=== PATIENT | male | born 1975 | race Caucasian/White ===

== ENCOUNTER 2022-01-21 07:29 | Inpatient (IN) | payer OTHER ==
[~2022-01-21] VITALS: Ht 175.3 cm; Wt 133.8 kg
[~2022-01-21 07:29] MED LIST: ASPI-1822 PO; CARV12.5 PO; FURO-570 PO; LOSA100T1 PO; POTA8TAB19 PO
[2022-01-21 07:58] VITALS: BP 206/114
[2022-01-21] MEDS ORDERED: FUROSEMIDE 40 MG/4 ML VIAL IVP SCH ×2 (08:25→17:00)
[2022-01-21] MEDS ORDERED: LORazepam 2 MG/ML VIAL IVP ONE (08:25)
[2022-01-21] MEDS ORDERED: LOSARTAN 50 MG TAB PO STA (08:43)
[2022-01-21] MEDS ORDERED: carvediloL 6.25 MG TAB PO ONE (08:45)
--- NOTE | 2022-01-21 09:00 | NUR ---
pt c/o sob s/p meth use this am. noted with constant dry cough. stach on monitor. saturation 91% ra. iv inserted to left ac #[id number].
--- NOTE | 2022-01-21 09:55 | NUR ---
pt desaturates to 87% on ra, dr day made aware. pending admission
--- NOTE | 2022-01-21 10:01 | NUR ---
rt at bedside for bipap
[2022-01-21 10:29] LABS: BASOPHILS % (AUTO) 0.3 % (0.0-2.0); EOSINOPHILS % (AUTO) 0.5 % (0.0-4.0); HEMATOCRIT 43.9 % (36-52); LYMPHOCYTES # (AUTO) 0.5 K/uL (2.0-11.5); LYMPHOCYTES % (AUTO) 5.3 % (20.5-51.1); MEAN CORPUSCULAR HEMOGLOBIN 27 pg (27-31); MEAN CORPUSCULAR HGB CONC 32 g/dL (33-37); MEAN CORPUSCULAR VOLUME 83.3 fL (80-94); MONOCYTES # (AUTO) 0.5 K/uL (0.8-1.0); MONOCYTES % (AUTO) 5.9 % (1.7-9.3); NEUTROPHILS # (AUTO) 7.8 K/uL (1.8-7.7); PLATELET COUNT (AUTO) 209 K/uL (140-450); RED BLOOD CELL COUNT(AUTO) 5.27 MIL/uL (4.20-6.10); RED CELL DISTRIBUTION WIDTH 18.7 % (11.6-13.7); WHITE BLOOD COUNT (AUTO) 8.9 K/uL (4.8-10.8)
[2022-01-21] MEDS ORDERED: LORazepam 2 MG/ML VIAL IVP PRN (10:40)
[2022-01-21] MEDS ORDERED: ACETAMINOPHEN 325 MG TAB PO PRN (10:40)
[2022-01-21] MEDS ORDERED: ONDANSETRON 4 MG/2 ML VIAL IVP PRN (10:40)
[2022-01-21] MEDS ORDERED: HYDROcodone/APAP 5/325 MG 1 TAB TAB PO PRN (10:40)
[2022-01-21] MEDS ORDERED: ALBUTEROL 0.083% 2.5 MG/3 ML NEBU INH PRN (10:40)
[2022-01-21 10:48] LABS: ALBUMIN 3.5 g/dL (3.4-5.0); ANION GAP 13.5 (8-16); CARBON DIOXIDE 25.3 mmol/L (21-32); CREATININE 1.2 mg/dL (0.6-1.3); POTASSIUM 3.8 mmol/L (3.5-5.1); TOTAL BILIRUBIN 1.9 mg/dL (0.0-1.0)
--- NOTE | 2022-01-21 10:54 | NUR ---
RECEIVED CRITICAL LAB VALUE OF TROPONIN 1511. PAGED AND SPOKE WITH DR MEJIA. ALSO NOTIFIED HIM OF ELEVATED BP. STATED HE WILL PUT IN ORDERS NOW.
[2022-01-21 11:15] VITALS: BP 149/87
[2022-01-21 11:39] LABS: CREATINE KINASE MB 4.4 ng/mL (0-3.6)
[2022-01-21] MEDS: PIPERACILLIN/TAZOBACTAM 3.375 GM in DEXTROSE 5% 50 ML IV SCH ×2 (14:23→21:43)
[2022-01-21 16:00] VITALS: BP 159/43
[2022-01-21] MEDS: FUROSEMIDE 40 MG/4 ML VIAL IVP SCH (17:00)
--- NOTE | 2022-01-21 19:25 | NUR ---
PT ENDORSED TO GARDENER FOR CONTINUITY OF CARE. POC DISCUSSED.
--- NOTE | 2022-01-21 19:27 | NUR ---
PATIENTS SATS ON ROOM AIR IS 95%. PATIENT IS EATING. PATIENT SAID HE WOULD WEAR BIPAP TONIGHT.NO SOB NOTED. NO HHNTX GIVEN AT THIS TIME
--- NOTE | 2022-01-21 19:30 | NUR ---
RECEIVED PT FROM AM NURSE FOR CONTINUITY OF CARE. PT IS STABLE
[2022-01-21 20:00] VITALS: BP 149/83
--- NOTE | 2022-01-21 20:31 | NUR ---
PATIENT REFUSES TO WEAR BIPAP AT THIS TIME. PATIENT IS ON 2LNC. SATS 99%. WILL MONITOR PATIENT
[2022-01-21] MEDS: carvediloL 3.125 MG TAB PO SCH (21:17)
--- NOTE | 2022-01-21 21:30 | NUR ---
ALL MEDS GIVEN , NO ADVERSE REACTIONS NOTED. NO SOB,NO DISTRESS NOTED
[2022-01-22] VITALS: BP 145/85
--- NOTE | 2022-01-22 01:00 | NUR ---
PT REFUSING 2L NC.EXPLAINE THE IMPORTANCE BUT HE SAID HE IS OK. O2 SAT AT 975% Addendum: 01/22/22 at 0124 by Jony Irby RN 97%
--- NOTE | 2022-01-22 03:00 | NUR ---
PATIENT ASLEEP, NO SOB NOTED,REFUSED BIPAP MACHINE,NO DISTRESS NOTED.
[2022-01-22 04:00] VITALS: BP 148/90
[2022-01-22] MEDS: PIPERACILLIN/TAZOBACTAM 3.375 GM in DEXTROSE 5% 50 ML IV SCH ×3 (05:05→20:54)
[2022-01-22 05:36] LABS: BASOPHILS % (AUTO) 0.9 % (0.0-2.0); EOSINOPHILS # (AUTO) 0.1 K/uL (0-0.4); EOSINOPHILS % (AUTO) 1.8 % (0.0-4.0); HEMATOCRIT 39.4 % (36-52); HEMOGLOBIN 12.6 g/dL (12.0-18.0); LYMPHOCYTES # (AUTO) 0.8 K/uL (2.0-11.5); LYMPHOCYTES % (AUTO) 18.6 % (20.5-51.1); MEAN CORPUSCULAR HEMOGLOBIN 26 pg (27-31); MEAN CORPUSCULAR HGB CONC 32 g/dL (33-37); MEAN CORPUSCULAR VOLUME 82.6 fL (80-94); MONOCYTES # (AUTO) 0.4 K/uL (0.8-1.0); NEUTROPHILS % (AUTO) 68.7 % (42.2-75.2); PLATELET COUNT (AUTO) 180 K/uL (140-450); RED BLOOD CELL COUNT(AUTO) 4.77 MIL/uL (4.20-6.10); RED CELL DISTRIBUTION WIDTH 18.7 % (11.6-13.7); WHITE BLOOD COUNT (AUTO) 4.4 K/uL (4.8-10.8)
--- NOTE | 2022-01-22 06:00 | NUR ---
PATIENT ASLEEP ,RESPIRATIONS EVEN AND UNLABORED,NO SOB NOTED
[2022-01-22 06:28] LABS: ANION GAP 12.9 (8-16); CARBON DIOXIDE 25.6 mmol/L (21-32); POTASSIUM 3.5 mmol/L (3.5-5.1)
--- NOTE | 2022-01-22 07:15 | NUR ---
RECEIVED BEDSIDE REPORT FROM WEIGHT CALLER NURSE FOR CONTINUITY OF CARE. PT AOX4. PT IS ON NC 2L BUT KEEPS TAKING IT OFF SATING AROUND 95% ON RA. IV ON L AC 18G, PATENT AND INTACT. PT BREATHING IS EVEN AND UNLABORED. NO SIGNS OF DISTRESS NOTED. ON TELE. ALL PRECAUTIONS IN PLACE. CALL LIGHT WITHIN REACH. PT IS STABLE.
[2022-01-22 08:00] VITALS: BP 160/81
--- NOTE | 2022-01-22 09:01 | NUR ---
PATIENT HAS BEEN SCREENED AND CATEGORIZED MODERATE NUTRITION RISK. PATIENT WILL BE SEEN WITHIN 3-[address]. [address]
[2022-01-22] MEDS: POTASSIUM CHLORIDE 10 MEQ TABER PO SCH (09:24)
[2022-01-22] MEDS: carvediloL 3.125 MG TAB PO SCH ×2 (09:25→20:53)
[2022-01-22] MEDS: FUROSEMIDE 40 MG/4 ML VIAL IVP SCH ×2 (09:26→17:14)
[2022-01-22] MEDS: ASPIRIN 81 MG TAB.CHEW PO SCH (09:26)
[2022-01-22] MEDS: LOSARTAN 50 MG TAB PO SCH (09:26)
[2022-01-22] MEDS: ENOXAPARIN 40 MG/0.4 ML SYR SUBQ SCH (09:28)
[2022-01-22] MEDS ORDERED: POTASSIUM CHLORIDE 10 MEQ TABER PO SCH (11:00)
[2022-01-22 11:23] LABS: CREATINE KINASE MB 2.7 ng/mL (0-3.6)
--- NOTE | 2022-01-22 11:56 | NUR ---
PT IS SLEEPING. PT AOX4. PT IS ON NC 2L. IV ON L AC 18G, PATENT AND INTACT. PT BREATHING IS EVEN AND UNLABORED. NO SIGNS OF DISTRESS NOTED. ON TELE. ALL PRECAUTIONS IN PLACE. CALL LIGHT WITHIN REACH. PT IS STABLE.
[2022-01-22 12:00] VITALS: BP 131/93
--- NOTE | 2022-01-22 14:30 | NUR ---
ASSISTED PT TO TAKE A SHOWER. PT FEELS MUCH BETTER. PT AOX4. PT IS ON NC 2L. IV ON L AC 18G, PATENT AND INTACT. PT BREATHING IS EVEN AND UNLABORED. NO SIGNS OF DISTRESS NOTED. ON TELE. ALL PRECAUTIONS IN PLACE. CALL LIGHT WITHIN REACH. PT IS STABLE.
[2022-01-22 16:00] VITALS: BP 126/96
--- NOTE | 2022-01-22 18:26 | NUR ---
PT IS RESTING. PT AOX4. PT IS ON NC 2L. IV ON L AC 18G, PATENT AND INTACT. PT BREATHING IS EVEN AND UNLABORED. NO SIGNS OF DISTRESS NOTED. ON TELE. ALL PRECAUTIONS IN PLACE. CALL LIGHT WITHIN REACH. PT IS STABLE.
--- NOTE | 2022-01-22 19:40 | NUR ---
PT ENDORSED TO KNITTING MACHINE MECHANIC FOR CONTINUITY OF CARE. POC DISCUSSED.
[2022-01-22 20:00] VITALS: BP 137/93
--- NOTE | 2022-01-22 20:31 | NUR ---
PT SITTING UP IN BED AWAKE AND ALERT, ANTERIOR AUSCULTATIONS REVEALED BS CLEAR THROUGHOUT ALL LUNG WALTER, NO SIGNS OF RESPIRATORY DISTRESS NOTED AT THIS TIME. PT IS CURRENTLY SATING 95% ON RA. DISCUSSED THE BENEFITS OF WEARING BIPAP AT NIGHT WITH PT. WILL ATTEMPT TO PLACE HIM ON BIPAP @ 2300. WILL CONTINUE TO MONITOR.
--- NOTE | 2022-01-22 22:45 | NUR ---
PATIENT IN BED. NO ACUTE DISTRESS NOTED. NO COMPLAINT OF PAIN OR DISCOMFORT. WILL CONTINUE TO MONITOR.
[2022-01-23] VITALS (7 sets, daily range): BP systolic 140–165; BP diastolic 71–107
[2022-01-23] MEDS: PIPERACILLIN/TAZOBACTAM 3.375 GM in DEXTROSE 5% 50 ML IV SCH (05:00)
--- NOTE | 2022-01-23 07:20 | NUR ---
Endorsed to a.m. nurse about patient's heart rhythm, 2nd and 3rd degree heart block.
--- NOTE | 2022-01-23 08:00 | NUR ---
RECEIVE PATIENT IN STABLE CONDITION FROM PM SHIFT NURSE. WILL CONTINUE TO MONITOR
--- NOTE | 2022-01-23 08:00 | NUR ---
REMOVED BIPAP @ 0800(AVAPS) +6, RR19, I-TIME 0.9, RISE 3, FIO2 36%, CURRENTLY ON STAND BY. PT IS CLEAR THROUGHOUT, NO RESPIRATORY DISTRESS NOTED. RESTING COMFORTABLY. SATURATION @ 96 ON RA. LET HIM KNOW THAT IF HE NAPS AND WANTS BIPAP ON TO CALL ME AND I WILL PIT IT BACK ON.
--- NOTE | 2022-01-23 08:46 | NUR ---
DC PLANNING: THE PATIENT PRESENTED TO ER WITH C/O SOB, H/O OF CHF AND HTN, STATES HE WAS EXPOSED TO PEOPLE WITH FLU LIKE SYMPTOMS. CXR SHOWS CARDIOMEGALY WITH EDEMA AND VASCULAR CONGESTION, B/P 204/114. EKG SHOWS LEFT BBB, LVH OF 128, NO STEMI. BNP ELEVATED AT 507, PATIENT GIVEN LASIX IV, COREG, COZAAR, ZOFRAN AND ATIVAN, ALSO DUONEBS FOR WHEEZING. WHIT SPOKE WITH THE PATIENT AT BEDSIDE, HE STATES THAT HE HAS BEEN LIVING IN HIS CAR FOR MONTHS AND DOESN'T HAVE A FIXED SPOT THAT HE MEADE IT IN. STATES HE IS INDEPENDENT IN ALL ACTIVITIES AND WORKS SPORADICALLY IN CONSTRUCTION. STATES THIS IS HIS ONLY INCOME SOURCE ASIDE FROM FOOD STAMPS. STATES HE LAST WORKED 2 WEEKS AGO, AND WILL RETURN TO LIVING IN HIS CAR. WHIT ENDORSED THAT THE SW WILL GIVE HIM RESOURCES FOR SHELTERS, HE STATES THAT HE WANTS RESOURCES FOR DRUG REHAB, SW TO ALSO PROVIDE THIS. THE PATIENT DOES NOT HAVE A PCP THAT HE SEES REGULARLY. WHIT WILL FOLLOW. Addendum: 01/23/22 at 0853 by Pati Zapata CM Amended: Links added.
[2022-01-23] MEDS: FUROSEMIDE 40 MG/4 ML VIAL IVP SCH (09:00)
[2022-01-23] MEDS: ENOXAPARIN 40 MG/0.4 ML SYR SUBQ SCH (09:00)
[2022-01-23] MEDS: LOSARTAN 50 MG TAB PO SCH (09:00)
[2022-01-23] MEDS: POTASSIUM CHLORIDE 10 MEQ TABER PO SCH (09:00)
[2022-01-23] MEDS: carvediloL 3.125 MG TAB PO SCH (09:00)
[2022-01-23] MEDS: ASPIRIN 81 MG TAB.CHEW PO SCH (09:00)
[2022-01-23] MEDS ORDERED: AMOX-1230 PO (10:24)
[2022-01-23] MEDS ORDERED: POTASSIUM CHLORIDE 10 MEQ TABER PO SCH (12:52)
--- NOTE | 2022-01-23 13:05 | NUR ---
RECEIVE PCP ORDER TO D/C PATIENT HOME. TEL. MONITOR & IV ACCESS REMOVED. PATIENT STABLE W/ NO ACUTE DISTRESS NOTED
--- NOTE | 2022-01-23 14:31 | NUR ---
DC PLANNING PATIENT ARRIVED AT [facility]/ED ON 01/21/22 FOR COMPLAINTS OF SHORTNESS OF BREATH, SICK CONTACTS OF FLU LIKE SX'S, VOMITING AND DIARRHEA. PATIENT HAS HX OF CHF AND HYPERTENSION SW MET WITH PATIENT AT BEDSIDE FOR THE PURPOSE OF DISCUSSING AND GATHERING COLLATERAL INFORMATION. PATIENT REPORTS CHRONIC HOMELESSNESS AND REPORTS LIVING IN HIS CAR. PATIENT PROVIDED ADDRESS ON FILE [address], WHERE HE RECEIVES ALL HIS MAIL. PATIENT REPORTS EMERGENCY CONTACT AND MEDICAL DECISION MAKER DARRYL SUAREZ (DAUGHTER) [phone]. SW INQUIRED ON A.D; PATIENT DENIED CURRENTLY HAVING ONE IN PLACE. SW PROVIDED PATIENT WITH EDUCATION AND INFORMATION. PATIENT WAS RECEPTIVE AND ACCEPTED A.D PACKET PROVIDED BY CARLI. PATIENT REPORTS BEING AMBULATORY/INDEPENDENT. PATIENT SELF REPORTED THAT HE IS ATTEMPTING TO TURN HIS LIFE AROUND. SW PROVIDED PATIENT WITH HOMELESS RESOURCES, EMERGENCY RESOURCES, AND ALCOHOL AND SUBSTANCE USE RESOURCES. PATIENT WAS RECEPTIVE AND REPORTED THAT HE WOULD BE CONTACTING [facility] ONCE CLEARED FOR DISCHARGED. SW PROVIDED PATIENT WITH PSYCHOEDUCATION ON REHABILITATION SERVICES AIDE SUBSTANCE USE. PATIENT REPORTS BEING INCONSISTENT WITH MEETING WITH PCP AND REPORTED NOT KNOWING HIS PCP PROVIDER. PATIENT PROVIDED SW WITH PERMISSION TO IDENTIFY PCP AND MAKE FOLLOW UP APPOINTMENT ONCE CLEARED FOR DISCHARGE. PATIENT REPORTS BEING NONCOMPLIANT WITH MEDICATION. PATIENT REPORTS DISCHARGE PLAN IS TO SEEK REHAB ASSISTANCE. ADVANCED SOLUTIONS ARCHITECT WILL FOLLOW UP. Addendum: 01/23/22 at 1440 by Bandar Gonsales CARLI CALLED [employer] TO IDENTIFY PATIENTS PCP. CALL REP IDENTIFIED DR RUTLEDGE AT [phone] PCP. CARLI OUTREACHED TO DR. RUTLEDGE OFFICE TO SCHEDULE FOLLOW APPT. APPT WAS MADE WITH CLOTH FINISHING RANGE OPERATOR CHIEF KALPANA FOR 01/28/22 AT 11:30AM [place] [address] [address] [facility] [place] [address] AT [phone] CARLI PROVIDED PATIENT WITH APPT INFORMATION THAT INCLUDED TIME, DATE, ADDRESS AND PHONE NUMBER FOR PCP. PATIENT WAS GRATEFUL AND REPORTED THAT HE WOULD FOLLOW UP.
[2022-01-23] MEDS ORDERED: FUROSEMIDE 40 MG TAB PO SCH (17:00)
== END 2022-01-23 13:30 | disposition home or self-care (01) | DRG 133 ==
LOC: MED 07:29 → MTU 10:43
PROVIDERS: ADMIT Hospitalist; ATTEND Hospitalist
PROC: 5A09357 Assistance with Respiratory Ventilation, Less than 24 Consecutive Hours, Continuous Positive Airway Pressure (ICD-10-PCS; principal; 2022-01-21)
DX: J96.01 Acute respiratory failure with hypoxia (principal); R65.11 Systemic inflammatory response syndrome (SIRS) of non-infectious origin with acute organ dysfunction; I21.A1 Myocardial infarction type 2; I50.23 Acute on chronic systolic (congestive) heart failure; I42.0 Dilated cardiomyopathy; I11.0 Hypertensive heart disease with heart failure; Z20.822 Contact with and (suspected) exposure to COVID-19; J45.909 Unspecified asthma, uncomplicated; E66.01 Morbid (severe) obesity due to excess calories; F15.10 Other stimulant abuse, uncomplicated; I44.7 Left bundle-branch block, unspecified; Z91.14 Patient's other noncompliance with medication regimen; Z68.41 Body mass index [BMI] 40.0-44.9, adult; Z87.891 Personal history of nicotine dependence; Z79.82 Long term (current) use of aspirin; Z79.899 Other long term (current) drug therapy
CPT/HCPCS: 36415; 71045; 80048; 80053; 82550; 82553; 83735; 83880; 84484; 85025; 87081; 93005; 94660; 96374; 96375; 99291; J1650; J1940; J2060; J2543; J7060

== ENCOUNTER 2022-02-08 23:50 | Emergency (ER) | payer OTHER ==
[~2022-02-08] VITALS: Ht 175.3 cm; Wt 126.3 kg
[~2022-02-08 23:50] MED LIST changes: +AMOX-1230 PO
[2022-02-09 00:18] VITALS: BP 152/105
--- NOTE | 2022-02-09 00:27 | NUR ---
PT TAKEN TO BED 11.
[2022-02-09] MEDS ORDERED: FURO-570 PO (01:10)
[2022-02-09] MEDS ORDERED: POTA10TA70 PO (01:10)
--- NOTE | 2022-02-09 01:11 | NUR ---
WRAPPED PATIENT'S RIGHT FOOT WITH NONADHERENT GAUZE AND LEXY WRAP PER ERMD SIN ORDERS. PATIENT +ROM, AND +SENSATION BILATERALLY S/P WRAPPED RIGHT FOOT.
--- NOTE | 2022-02-09 01:12 | NUR ---
ERMD SIN COMFORTABLE SENDING PATIENT HOME WITH INCREASED HR AND HIGH BLOOD PRESSURE. ERMD AWARE STATUS OF VITAL SIGNS.
--- NOTE | 2022-02-09 01:17 | NUR ---
Patient discharged. Written and verbal after care instructions given and explained. Patient alert, oriented and verbalized understanding of instructions. Ambulatory with steady gait. All questions addressed prior to discharge. ID band removed. Patient advised to follow up with PMD. Rx of Lasix and K-DUR given. Patient educated on indication of medication including possible reaction and side effects. Opportunity to ask questions provided and answered.
[2022-02-09 01:19] VITALS: BP 155/115
== END 2022-02-09 01:17 | disposition home or self-care (01) ==
LOC: MED 23:50
DX: I83.891 Varicose veins of right lower extremity with other complications (principal); J45.909 Unspecified asthma, uncomplicated; I11.0 Hypertensive heart disease with heart failure; I50.9 Heart failure, unspecified; F12.90 Cannabis use, unspecified, uncomplicated; Z79.899 Other long term (current) drug therapy; Z79.82 Long term (current) use of aspirin; Z79.2 Long term (current) use of antibiotics
CPT/HCPCS: 99283

== ENCOUNTER 2022-04-07 19:28 | Emergency (ER) | payer OTHER ==
[~2022-04-07] VITALS: Ht 175.3 cm; Wt 127.0 kg
[~2022-04-07 19:28] MED LIST changes: -AMOX-1230 PO; -CARV12.5 PO; +CARV6.25 PO; -LOSA100T1 PO; +LOSA25TA32 PO; -POTA8TAB19 PO; +SPIR50TA PO
[2022-04-07 20:11] VITALS: BP 156/114
--- NOTE | 2022-04-07 20:20 | NUR ---
TO LOBBY FOLLOWING TRIAGE
[2022-04-07] MEDS ORDERED: FUROSEMIDE 40 MG TAB PO ONE (22:00)
[2022-04-07] MEDS ORDERED: LOSA100T1 PO (22:03)
[2022-04-07] MEDS ORDERED: CARV12.5 PO (22:03)
[2022-04-07] MEDS ORDERED: FURO-570 PO (22:03)
[2022-04-07] MEDS ORDERED: POTA8TAB19 PO (22:03)
[2022-04-07] MEDS ORDERED: FUROSEMIDE 40 MG TAB ONE (23:02)
--- NOTE | 2022-04-07 23:05 | NUR ---
Patient discharged with v/s stable. Written and verbal after care instructions given and explained. Patient alert, oriented and verbalized understanding of instructions. Ambulatory with steady gait. All questions addressed prior to discharge. ID band removed. Patient advised to follow up with PMD. Rx of LOSARTAN, POSTASSIUM, LASIX, COREG given. Patient educated on indication of medication including possible reaction and side effects. Opportunity to ask questions provided and answered.
[2022-04-11] MEDS ORDERED: SPIR25TA PO (13:01)
== END 2022-04-07 23:05 | disposition home or self-care (01) ==
LOC: MED 19:28
DX: I11.0 Hypertensive heart disease with heart failure (principal); I50.9 Heart failure, unspecified; R60.0 Localized edema; J45.909 Unspecified asthma, uncomplicated; Z79.899 Other long term (current) drug therapy; Z79.82 Long term (current) use of aspirin
CPT/HCPCS: 99283

== ENCOUNTER 2022-04-15 04:25 | Inpatient (IN) | payer OTHER ==
[~2022-04-15] VITALS: Ht 182.9 cm; Wt 128.8 kg
[~2022-04-15 04:25] MED LIST changes: -ASPI-1822 PO; +CARV12.5 PO; -CARV6.25 PO; +LOSA100T1 PO; -LOSA25TA32 PO; +POTA8TAB19 PO; +SPIR25TA PO; -SPIR50TA PO
[2022-04-15 05:00] VITALS: BP 176/109
--- NOTE | 2022-04-15 05:03 | NUR ---
TO LOBBY A/W BED AMBULATORY
--- NOTE | 2022-04-15 05:14 | NUR ---
Dr. Cummings examining patient.
--- NOTE | 2022-04-15 05:16 | NUR ---
PT TAKEN TO BED 9
[2022-04-15] MEDS ORDERED: MAG SULF 2000 MG/WATER PREMIX 50 ML IV ONE (05:20)
[2022-04-15] MEDS ORDERED: FUROSEMIDE 40 MG/4 ML VIAL IVP ONE (05:20)
[2022-04-15] MEDS ORDERED: ALBUTEROL SULFATE/IPRATROPIU 3 ML SOL IH ONE (05:20)
[2022-04-15] MEDS ORDERED: predniSONE 20 MG TAB PO ONE (05:20)
--- NOTE | 2022-04-15 05:29 | NUR ---
X-Ray at bedside.
--- NOTE | 2022-04-15 05:29 | NUR ---
CHAINSTITCH ELASTIC ATTACHER AT BEDSIDE
[2022-04-15] MEDS ORDERED: ALBUTEROL HFA MDI 90 MCG/ACTUATION 8 GM INH ONE (05:30)
[2022-04-15 05:34] LABS: BASOPHILS # (AUTO) 0.1 K/uL (0.00-0.22); EOSINOPHILS # (AUTO) 0.1 K/uL (0-0.4); EOSINOPHILS % (AUTO) 1.1 % (0.0-4.0); HEMOGLOBIN 13.2 g/dL (12.0-18.0); LYMPHOCYTES # (AUTO) 1.6 K/uL (2.0-11.5); LYMPHOCYTES % (AUTO) 18.1 % (20.5-51.1); MEAN CORPUSCULAR HEMOGLOBIN 27 pg (27-31); MEAN CORPUSCULAR HGB CONC 32 g/dL (33-37); MEAN CORPUSCULAR VOLUME 84.8 fL (80-94); MONOCYTES # (AUTO) 1.2 K/uL (0.8-1.0); MONOCYTES % (AUTO) 13.3 % (1.7-9.3); NEUTROPHILS # (AUTO) 5.9 K/uL (1.8-7.7); NEUTROPHILS % (AUTO) 66.5 % (42.2-75.2); PLATELET COUNT (AUTO) 193 K/uL (140-450); RED BLOOD CELL COUNT(AUTO) 4.84 MIL/uL (4.20-6.10); RED CELL DISTRIBUTION WIDTH 19.1 % (11.6-13.7); WHITE BLOOD COUNT (AUTO) 8.9 K/uL (4.8-10.8)
--- NOTE | 2022-04-15 05:36 | NUR ---
46 Y/O MALE BIBS FROM "CAR," C/O SOB X1 DAY. PT STATES HE CAME TO [facility] RECENTLY TO RECIEVE A BREATYHING TREATMENT. TODAY HE WAS HOPING ANOTHER BREATHING TREATMENT WOULD HELP HIM. PT IS SOB ADN NOT ABLE TO SPEAK IN FULL SENTENCES, TACHYPNIC, ACCESSORY MUSCLE USE. A/OX4, GCS-15; AMBULATORY. SKIN IS PINK, WARM, AND DRY, TACHYCARDIC. HX: CHF, COPD, HYN NKA
--- NOTE | 2022-04-15 05:42 | NUR ---
PT MOVED TO ER BED 1
--- NOTE | 2022-04-15 05:43 | NUR ---
RT AT BEDSIDE GIVING BREATHING TREATMENT
[2022-04-15 06:04] LABS: ALBUMIN 3.2 g/dL (3.4-5.0); ANION GAP 10.8 (8-16); CARBON DIOXIDE 25.9 mmol/L (21-32); CREATININE 1.1 mg/dL (0.6-1.3); POTASSIUM 3.7 mmol/L (3.5-5.1); TOTAL BILIRUBIN 0.9 mg/dL (0.0-1.0)
--- NOTE | 2022-04-15 07:15 | NUR ---
REPORT RECIEVED FROM FEBRUARY RN
--- NOTE | 2022-04-15 07:30 | NUR ---
COVID SWAB OBTAINED AND SENT TO LAB
--- NOTE | 2022-04-15 07:31 | NUR ---
46YR OLD MALE BIB SELF LAST NIGHT C/O SOB. PT HAS A HX OF CHF. WAS COVID POSITIVE TESTED HERE AT [facility] ON THE [facility]. PATIENT WILL BE ADMITTED. PENDING ADMISSION ORDERS. PT IS ON BEDSIDE MONITOR SP02 95% RA. NO DISTRESS NOTED. SPEAKING IN FULL SENTENCES. IS TACHYCARDIC HR 115. PT IS A&OX4. SKIN PINK WARM DRY. PT SITTING ON SIDE OF BED. STATES "ROOM IS TOO HOT" IS UNCOMFORTABLE. COMFORT MEASURES . SIDE RAILS UPX1. BED AT LOWEST POSITION. NKDA CHF HTN
--- NOTE | 2022-04-15 08:41 | NUR ---
20G IV CATH STARTED L FOREARM. 22G IV CATH REMOVED FROM L HAND
--- NOTE | 2022-04-15 08:57 | NUR ---
Patient discharged with v/s stable. Written and verbal after care instructions given and explained. Patient alert, oriented and verbalized understanding of instructions. Ambulatory with steady gait. All questions addressed prior to discharge. ID band removed. Patient advised to follow up with PMD. Rx of ATARAX ZOFRAN given. Patient educated on indication of medication including possible reaction and side effects. Opportunity to ask questions provided and answered.
--- NOTE | 2022-04-15 09:17 | NUR ---
PATIENT WALKED TO BATHROOM WITHOUT DIFFICULTY. DENIES SOB. SITTING IN CHAIR EATING BREAKFAST
--- NOTE | 2022-04-15 09:34 | NUR ---
PERSONAL BELONGINGS AND MED RECONCILE COMPLETED
[2022-04-15] MEDS ORDERED: MORPHINE SULFATE 4 MG/ML SYR IVP PRN (09:35)
[2022-04-15] MEDS ORDERED: ACETAMINOPHEN 325 MG TAB PO PRN (09:35)
[2022-04-15] MEDS ORDERED: ONDANSETRON 4 MG/2 ML VIAL IVP PRN (09:35)
[2022-04-15] MEDS ORDERED: POTASSIUM CHLORIDE 10 MEQ TABER PO PRN (09:35)
[2022-04-15] MEDS ORDERED: MAG SULF 2000 MG/WATER PREMIX 50 ML IV PRN (09:35)
[2022-04-15] MEDS ORDERED: KCL 20 MEQ/WATER INJ PREMIX 200 ML IV PRN (09:35)
[2022-04-15] MEDS ORDERED: MAGNESIUM OXIDE 400 MG TAB PO PRN (09:35)
[2022-04-15] MEDS ORDERED: HYDROcodone/APAP 5/325 MG 1 TAB TAB PO PRN (09:35)
--- NOTE | 2022-04-15 09:39 | NUR ---
PENDING ADMISSION ORDERS. PT DENIES SOB . TACHYCARDIC AT 170. SP02 98% RA. PT ON SITTING UP ON SIDE OF BED. PT ON BEDSIDE MONITOR. WILL CONTINUE TO MONITOR PT AND OFFER SUPPORT WHEN NEEDED
[2022-04-15] MEDS: NACL 0.9% 1,000 ML IV SCH ×2 (11:05→22:05)
--- NOTE | 2022-04-15 12:58 | NUR ---
FOOD PROVIDED TO PATIENT. SITTING UP RIGHT. SP02 97%RA. TACHYCARDIC 111. NO DISTRESS NOTED. PT ON MONITOR . PENDING AVIAL BED ASSIG.
--- NOTE | 2022-04-15 14:33 | NUR ---
Patient will be admitted to care of [facility]. Admited to TELE. Will go to room 118. Belongings list completed. Report to AUSTEN NICHOLAS.
--- NOTE | 2022-04-15 14:34 | NUR ---
Chart checked and completed. The patient's care was reviewed and supervised by Shweta Dee RN.
[2022-04-15 14:40] VITALS: BP 152/108
--- NOTE | 2022-04-15 14:40 | NUR ---
RECEIVED PT FROM ER. BEDSIDE REPORT GIVEN BY SAMANTHA. PT IS ALERT, ABLE TO MAKE NEEDS KNOWN, A/OX4. AMBULATORY WITH STEADY GAIT. BREATHING SYMMETRICAL ON ROOM AIR. NO C/O PAIN OR DISCOMFORT AT THIS TIME. PT WITH LFA 20G WITH NS AT 80CC/HR. MRSA SWAB DONE. DROPLET PRECAUTIONS IN PLACE. PER PT HE DOESN'T WANT US TO INFORM HIS FAMILY THAT HE'S HERE BECAUSE "THEY WILL ASK TOO MANY QUESTIONS" CALL LIGHT WITHIN REACH. ALL SAFETY MEASURES IN PLACE.
--- NOTE | 2022-04-15 14:50 | NUR ---
DR ERAZO MADE AWARE THAT PT'S BP IS 158/108, STATED HE WILL BE HERE IN 15-20MINS.
--- NOTE | 2022-04-15 15:42 | NUR ---
PT STATES HE LIVES IN HIS CAR AND STATES WANTING TO GO TO HIS CAR TO GET SOME OF HIS STUFF. PER PT HE'D DONE IT FROM HIS PRIOR ADMISSION AND HE WAS ASSISTED BY SECURITY. REPORTING PROCESS CONSULTANT WAS MADE AWARE AND PER REPORTING PROCESS CONSULTANT OK FOR SECURITY TO ACCOMPANY PT. SECURITY ACCOMPANIED PT TO HIS CAR.
--- NOTE | 2022-04-15 16:15 | NUR ---
PT BACK TO THE UNIT AND IN HIS ROOM FROM HIS CAR.
--- NOTE | 2022-04-15 17:30 | NUR ---
PT AWAKE IN HIS ROOM, SITTING ON THE CHAIR BY THE WINDOW. NO SOB NOTED. DENIES PAIN.
--- NOTE | 2022-04-15 19:10 | NUR ---
DR ERAZO MADE AWARE OF HOME MEDS, PER MD TO CONTINUE ALL HOME MEDS.
--- NOTE | 2022-04-15 19:31 | NUR ---
ENDORSED PT TO WEB USER EXPERIENCE STRATEGIST NURSE FOR CONTINUITY OF CARE.
[2022-04-15 20:00] VITALS: BP 159/103
[2022-04-15] MEDS: carvediloL 12.5 MG TAB PO SCH (20:33)
--- NOTE | 2022-04-15 23:39 | NUR ---
Patient pulled out his IV CATHETER, IT WAS INTACT, HE STILL HAS IV N/S WHICH WAS HANGED, TO REPLACE CATHETER THEN CONTINUE WITH THE SALINE, NO NEW N/S PULLED. he also has troponin 53099,MD DONOVAN notified and he said he is going to put in orders for aspirin. WILL CONTINUE TO MONITOR PATIENT
[2022-04-15] MEDS: ECOTRIN 81 MG TABEC PO SCH (23:49)
[2022-04-16] VITALS: BP 124/93
--- NOTE | 2022-04-16 00:24 | NUR ---
Patient has pulled out his IV again, he is alert and oriented x4 counselled him why he needs fluids and he refused he verbalized he does not need any IVs at this time. Advised him to rest and to have enough drink so he does not become dehydrated. Will continue to monitor him.
[2022-04-16] MEDS: LORazepam 1 MG TAB PO PRN ×2 (02:12→04:03)
--- NOTE | 2022-04-16 03:52 | NUR ---
PATIENT WAS DIAPHORETIC AND HE IS A KNOWN ALCOHOL ABUSE AND METH USE, THIS RN CONTACTED THE MD FOR ATIVAN BUT WHEN THE MEDICATION WAS GIVEN TO HIM HE REFUSED TO TAKE IT VERBALIZING HE DOES NOT WANT IT, THIS RN REQUESTED ANOTHER RN ROSALBA TO TRY AND TALK TO HIM AND ADVISE HIM ON THE NEED TO TAKE THE MEDICATION BUT HE STILL REFUSED TO TAKE IT. THE PRIMARY RN RETURNED THE MEDICATION TO THE [facility]. WHEN IT WAS 0350 HE CALLED AGAIN THAT HE WANTS THE MEDICATION NOW SO THIS RN TOOK THE MEDICATION TO HIM. WILL CONTINUE TO MONITOR HIM
[2022-04-16 04:00] VITALS: BP 142/103
--- NOTE | 2022-04-16 07:15 | NUR ---
RECEIVED REPORT FROM HOTEL OPERATION MANAGER NURSE FOR CONTINUITY OF CARE. PT ASLEEP SITTING ON CHAIR. BREATHING SYMMETRICAL ON ROOM AIR. FLACC O. NO IV LINE IN PLACE AT THIS TIME PT PULLED IT OUT. ALSO PER NOC SHIFT NURSE REPORT PT WAS EXPERIENCING WHAT APPEARS TO BE WITHDRAWALS (CHILLS/LOW GRADE FEVER, RESTLESS, DIAPHORETIC), PT HAS HX OF USING ALCOHOL/METH. ALL SAFETY MEASURES IN PLACE. WILL MONITOR.
[2022-04-16 07:20] LABS: BASOPHILS # (AUTO) 0.1 K/uL (0.00-0.22); BASOPHILS % (AUTO) 0.8 % (0.0-2.0); EOSINOPHILS # (AUTO) 0.1 K/uL (0-0.4); EOSINOPHILS % (AUTO) 1.1 % (0.0-4.0); HEMATOCRIT 39.9 % (36-52); HEMOGLOBIN 13.1 g/dL (12.0-18.0); LYMPHOCYTES # (AUTO) 1.5 K/uL (2.0-11.5); LYMPHOCYTES % (AUTO) 15.6 % (20.5-51.1); MEAN CORPUSCULAR HEMOGLOBIN 28 pg (27-31); MEAN CORPUSCULAR HGB CONC 33 g/dL (33-37); MEAN CORPUSCULAR VOLUME 84.4 fL (80-94); MONOCYTES # (AUTO) 1.1 K/uL (0.8-1.0); MONOCYTES % (AUTO) 11.3 % (1.7-9.3); NEUTROPHILS # (AUTO) 6.9 K/uL (1.8-7.7); NEUTROPHILS % (AUTO) 71.2 % (42.2-75.2); PLATELET COUNT (AUTO) 187 K/uL (140-450); RED BLOOD CELL COUNT(AUTO) 4.73 MIL/uL (4.20-6.10); WHITE BLOOD COUNT (AUTO) 9.7 K/uL (4.8-10.8)
[2022-04-16 07:25] LABS: ANION GAP 11.5 (8-16); CARBON DIOXIDE 26.9 mmol/L (21-32); CREATININE 0.9 mg/dL (0.6-1.3); POTASSIUM 3.4 mmol/L (3.5-5.1); TOTAL BILIRUBIN 1.1 mg/dL (0.0-1.0)
--- NOTE | 2022-04-16 07:26 | NUR ---
REPORT GIVEN TO AM YU MONTES TO CONTINUE WITH CARE. HE IS STABLE AND VITALS ARE WITHIN NORMAL LIMITS.
[2022-04-16 08:00] VITALS: BP 117/59
--- NOTE | 2022-04-16 08:57 | NUR ---
PATIENT HAS BEEN SCREENED AND CATEGORIZED MODERATE NUTRITION RISK. PATIENT WILL BE SEEN WITHIN 3-[address]. [address]
[2022-04-16] MEDS: DOCUSATE SODIUM 100 MG GELCAP PO SCH (09:00)
[2022-04-16] MEDS ORDERED: FUROSEMIDE 40 MG TAB PO SCH (09:00)
[2022-04-16] MEDS: SPIRONOLACTONE 25 MG TAB PO SCH ×2 (09:00→16:45)
[2022-04-16] MEDS ORDERED: APIXABAN 2.5 MG TAB PO SCH (09:00)
[2022-04-16] MEDS: ECOTRIN 81 MG TABEC PO SCH (09:07)
[2022-04-16] MEDS: carvediloL 12.5 MG TAB PO SCH ×2 (09:08→21:20)
[2022-04-16] MEDS: LOSARTAN 50 MG TAB PO SCH (09:08)
[2022-04-16] MEDS: POTASSIUM CHLORIDE 8 MEQ TABER PO SCH (09:14)
--- NOTE | 2022-04-16 09:33 | NUR ---
PT TRANSFERRED TO [facility]
--- NOTE | 2022-04-16 11:30 | NUR ---
INSERTED IV LINE ON PT, LEFT HAND 22G, NO S/SX OF INFILTRATION NOTED
--- NOTE | 2022-04-16 11:35 | NUR ---
PT SEEN BY DR ERAZO
[2022-04-16] MEDS: NACL 0.9% 1,000 ML IV SCH (11:45)
[2022-04-16 12:00] VITALS: BP 116/80
--- NOTE | 2022-04-16 12:15 | NUR ---
PT SEEN BY DR WHITE
--- NOTE | 2022-04-16 12:37 | NUR ---
DC PLANNING: THE PATIENT PRESENTED WITH C/O SOB, RECENT DX OF COVID X 5 DAYS. COVID RAPID POSITIVE, PATIENT STATES HE LOST HIS MEDICATIONS AND HAS NOT BEEN TAKING HIS LASIX. H/O CHF, COPD AND HTN. B/P 176/109, TROPONINS 1053, 1070, 916, BNP 982. STARTED ON LASIX IV AND PO CARDIAC MEDS. ORDERS FOR CARDIOLOGY CONSULT AND ECHOCARDIOGRAM. THE PATIENT IS HOMELESS AND LIVES PRIMARILY IN HIS TRUCK. THE PATIENT HAS BEEN OFFERED HOMELESS RESOURCES IN THE PAST AND DECLINES THEM HE DOES NOT WANT TO GO TO SHELTERS AND PREFERS TO WORK FOR INCOME. THE PATIENT IS INDEPENDENT IN ALL ACTIVITIES AND DOES NOT HAVE A PMD. THE PATIENT HAS A H/O OF DRUG ABUSE AND HAS BEEN GIVEN RESOURCES FOR ALCOHOL AND DRUG REHAB PROGRAMS ON PAST ADMISSIONS. THE PATIENT WILL RETURN TO LIVING IN HIS VEHICLE WHEN CLINICALLY STABLE, CM WILL FOLLOW.
--- NOTE | 2022-04-16 15:33 | NUR ---
PT IN BED, SLEEPY BUT EASILY AROUSABLE. DENIES PAIN. CALL LIGHT WITHIN REACH
[2022-04-16 16:00] VITALS: BP 125/85
[2022-04-16] MEDS: FUROSEMIDE 40 MG/4 ML VIAL IVP SCH (16:45)
--- NOTE | 2022-04-16 19:23 | NUR ---
ENDORSED PT TO GROUNDSKEEPING MAINTENANCE NURSE FOR CONTINUITY OF CARE.
[2022-04-16 20:00] VITALS: BP 135/91
--- NOTE | 2022-04-16 20:00 | NUR ---
RECEIVE SITTING ON CHAIR IS ON ROOM AIR DROPLET ISOLATION IS MAINTAINED IS ALERT ORIENTATED NO VOICE COMPLAINTS
[2022-04-17 04:00] VITALS: BP 143/98
[2022-04-17 07:20] LABS: BASOPHILS # (AUTO) 0.1 K/uL (0.00-0.22); BASOPHILS % (AUTO) 1.2 % (0.0-2.0); EOSINOPHILS # (AUTO) 0.1 K/uL (0-0.4); EOSINOPHILS % (AUTO) 2.1 % (0.0-4.0); HEMATOCRIT 45.1 % (36-52); HEMOGLOBIN 14.8 g/dL (12.0-18.0); LYMPHOCYTES # (AUTO) 1.9 K/uL (2.0-11.5); LYMPHOCYTES % (AUTO) 27.8 % (20.5-51.1); MEAN CORPUSCULAR HEMOGLOBIN 28 pg (27-31); MEAN CORPUSCULAR HGB CONC 33 g/dL (33-37); MEAN CORPUSCULAR VOLUME 84.6 fL (80-94); MONOCYTES % (AUTO) 14.6 % (1.7-9.3); NEUTROPHILS # (AUTO) 3.6 K/uL (1.8-7.7); NEUTROPHILS % (AUTO) 54.3 % (42.2-75.2); PLATELET COUNT (AUTO) 214 K/uL (140-450); RED BLOOD CELL COUNT(AUTO) 5.34 MIL/uL (4.20-6.10); RED CELL DISTRIBUTION WIDTH 19.1 % (11.6-13.7); WHITE BLOOD COUNT (AUTO) 6.7 K/uL (4.8-10.8)
--- NOTE | 2022-04-17 07:25 | NUR ---
RECEIVED REPORT FROM WORK STATION SUPPORT SPECIALIST NURSE FOR CONTINUITY OF CARE. PT IS SLEEPING AT THIS TIME, AROUSABLE BY VERBAL STIMULI. RESPIRATIONS EVEN AND UNLABORED ON ROOM AIR. NO DISTRESS NOTED. A&O4, ABLE TO COMMUNICATE NEEDS. SKIN IS INTACT, WARM AND DRY TO TOUCH. IV SITE AT LEFT HAND G22, SALINE LOCK. DROPLET PRECAUTIONS SIGNS AT THE DOOR. CALL LIGHT WITHIN REACH. SAFETY PRECAUTIONS IN PLACE. WILL CONTINUE TO MONITOR.
[2022-04-17 07:32] LABS: ALBUMIN 3.4 g/dL (3.4-5.0); ANION GAP 11.3 (8-16); CARBON DIOXIDE 29.3 mmol/L (21-32); MAGNESIUM 1.9 mg/dL (1.8-2.4); POTASSIUM 4.6 mmol/L (3.5-5.1); TOTAL BILIRUBIN 0.8 mg/dL (0.0-1.0)
[2022-04-17 08:00] VITALS: BP 140/79
[2022-04-17] MEDS: SPIRONOLACTONE 25 MG TAB PO SCH ×3 (09:00→17:00)
[2022-04-17] MEDS: carvediloL 12.5 MG TAB PO SCH ×2 (09:31→20:45)
[2022-04-17] MEDS: ECOTRIN 81 MG TABEC PO SCH (09:31)
[2022-04-17] MEDS: LOSARTAN 50 MG TAB PO SCH (09:31)
[2022-04-17] MEDS: DOCUSATE SODIUM 100 MG GELCAP PO SCH (09:32)
[2022-04-17] MEDS: POTASSIUM CHLORIDE 8 MEQ TABER PO SCH (09:38)
--- NOTE | 2022-04-17 09:46 | NUR ---
ADMINISTERED SCHEDULED MORNING MEDS. PT REFUSED TAKING SPIRONOLACTONE. PT STATED, HE DOESN'T LIKE IT AND THAT HE ONLY WANTS THE IV LASIX. PT TEACHING ABOUT MEDS GIVEN. PT VERBALIZED UNDERSTANDING. PT A&O4, ABLE TO COMMUNICATE NEEDS. PT TOO SLEEPY. NO DISTRESS NOTED. NO DIFF BREATHING. PT SATTING AT 98%. CALL LIGHT WITHIN REACH. SAFETY PRECAUTIONS IN PLACE. WILL CONTINUE TO MONITOR.
[2022-04-17] MEDS: FUROSEMIDE 40 MG/4 ML VIAL IVP SCH ×2 (09:56→17:53)
[2022-04-17] MEDS ORDERED: guaiFENesin/CODEINE 100/10MG 5 ML UDC PO PRN (10:55)
--- NOTE | 2022-04-17 12:45 | NUR ---
PT SITTING AT BEDSIDE, EATING LUNCH. NO DISTRESS NOTED. NO DIFFICULTY BREATHING, NO SOB, DENIES PAIN. SAFETY PRECAUTIONS IN PLACE.
[2022-04-17 16:00] VITALS: BP 110/65
--- NOTE | 2022-04-17 17:22 | NUR ---
PT REFUSED SPIRONOLACTONE. PT STATED HE JUST WANT THE LASIX. PT TEACHING GIVEN. DISCUSSED WITH PT THE IMPORTANCE AND RISKS OF NOT TAKING THE MED. PT VERBALIZED UNDERSTANDING. IV LASIX TO BE ADMINISTERED BY YU CARPIO.
--- NOTE | 2022-04-17 19:19 | NUR ---
GAVE REPORT TO STOREROOM SUPERVISOR NURSE FOR CONTINUITY OF CARE. ALL NEEDS MET THROUGHOUT SHIFT. PT IS STABLE.
--- NOTE | 2022-04-17 19:30 | NUR ---
RECEIVED BEDSIDE REPORT FROM DAY SHIFT RN FOR CONTINUITY OF CARE. PT IS AWAKE AAOX4 ON RA. PT IS UP AND WALKING AROUND NOT IN ANY ACUTE DISTRESS. PT HAS LEFT HAND 22 GAUGE. PLAN OF CARE DISCUSSED. CALL LIGHT WITHIN REACH. ALL SAFETY MEASURES TAKEN. WILL CONTINUE TO MONITOR THE PT.
[2022-04-17 20:00] VITALS: BP 127/70
--- NOTE | 2022-04-17 21:00 | NUR ---
ALL DUE MEDS GIVEN. NO ADVERSE REACTION NOTED. WILL CONTINUE TO MONITOR THE PT.
--- NOTE | 2022-04-18 03:12 | NUR ---
PT IS SLEEPING IN BED COMFORTABLY. PT IS NOT IN ANY DISTRESS. BREATHING EVEN AND UNLABORED. CALL LIGHT WITHIN REACH. ALL SAFETY MEASURES TAKEN. WILL CONTINUE TO MONITOR THE PT.
[2022-04-18 06:51] LABS: BASOPHILS # (AUTO) 0.2 K/uL (0.00-0.22); BASOPHILS % (AUTO) 2.8 % (0.0-2.0); EOSINOPHILS # (AUTO) 0.1 K/uL (0-0.4); EOSINOPHILS % (AUTO) 1.4 % (0.0-4.0); HEMOGLOBIN 14.2 g/dL (12.0-18.0); LYMPHOCYTES # (AUTO) 1.6 K/uL (2.0-11.5); LYMPHOCYTES % (AUTO) 24.3 % (20.5-51.1); MEAN CORPUSCULAR HEMOGLOBIN 27 pg (27-31); MEAN CORPUSCULAR HGB CONC 32 g/dL (33-37); MEAN CORPUSCULAR VOLUME 84.3 fL (80-94); MONOCYTES # (AUTO) 0.8 K/uL (0.8-1.0); MONOCYTES % (AUTO) 12.6 % (1.7-9.3); NEUTROPHILS # (AUTO) 3.9 K/uL (1.8-7.7); NEUTROPHILS % (AUTO) 58.9 % (42.2-75.2); PLATELET COUNT (AUTO) 212 K/uL (140-450); RED BLOOD CELL COUNT(AUTO) 5.22 MIL/uL (4.20-6.10); WHITE BLOOD COUNT (AUTO) 6.6 K/uL (4.8-10.8)
[2022-04-18 07:06] LABS: ALBUMIN 3.2 g/dL (3.4-5.0); ANION GAP 12.9 (8-16); CARBON DIOXIDE 27.4 mmol/L (21-32); CREATININE 0.9 mg/dL (0.6-1.3); MAGNESIUM 1.9 mg/dL (1.8-2.4); POTASSIUM 4.3 mmol/L (3.5-5.1); TOTAL BILIRUBIN 0.8 mg/dL (0.0-1.0)
--- NOTE | 2022-04-18 07:28 | NUR ---
ENDORSED PT TO DAY SHIFT RN FOR CONTINUITY OF CARE. PT IS STABLE.
--- NOTE | 2022-04-18 07:29 | NUR ---
RECEIVED REPORT FROM LACQUERER NURSE FOR CONTINUITY OF CARE. PT IS AWAKE, IN BED. RESPIRATIONS EVEN AND UNLABORED ON ROOM AIR. NO DISTRESS NOTED. A&O4, ABLE TO COMMUNICATE NEEDS. SKIN IS INTACT, WARM AND DRY TO TOUCH. IV SITE AT LEFT HAND G22, SALINE LOCK. CALL LIGHT WITHIN REACH. SAFETY PRECAUTIONS IN PLACE. WILL CONTINUE TO MONITOR.
[2022-04-18 08:00] VITALS: BP 150/95
[2022-04-18] MEDS: SPIRONOLACTONE 25 MG TAB PO SCH (09:00)
[2022-04-18] MEDS: LOSARTAN 50 MG TAB PO SCH (09:45)
[2022-04-18] MEDS: POTASSIUM CHLORIDE 8 MEQ TABER PO SCH (09:45)
[2022-04-18] MEDS: ECOTRIN 81 MG TABEC PO SCH (09:46)
[2022-04-18] MEDS: carvediloL 12.5 MG TAB PO SCH (09:46)
[2022-04-18] MEDS: DOCUSATE SODIUM 100 MG GELCAP PO SCH (09:46)
--- NOTE | 2022-04-18 10:00 | NUR ---
ADMINISTERED SCHEDULED MORNING MEDS. PT REFUSED TAKING SPIRONOLACTONE. PT STATED HE DOESN'T WANT SPIRONOLACTONE BUT HE'S OK WITH LASIX. PT TEACHING ABOUT MEDS GIVEN. DISCUSSED WITH PT THE IMPORTANCE AND RISKS OF NOT TAKING SPIRONOLACTONE. PT VERBALIZED UNDERSTANDING. LASIX ADMINISTERED BY YU FRAIRE. PT HAS NO COMPLAINS OF PAIN. NO SOB. NO DIFFICULTY BREATHING. DROPLET AND SAFETY PRECAUTIONS IN PLACE.
[2022-04-18] MEDS: FUROSEMIDE 40 MG/4 ML VIAL IVP SCH (10:19)
--- NOTE | 2022-04-18 12:45 | NUR ---
PT HAVING LUNCH. NO DISTRESS NOTED. PT BREATHING EVEN AND UNLABORED WITH NO DISTRESS NOTED. SAFETY PRECAUTIONS IN PLACE.
[2022-04-18 16:00] VITALS: BP 141/95
--- NOTE | 2022-04-18 16:05 | NUR ---
PT INFORMED NURSE THAT HE WANTS TO GO HOME TODAY BECAUSE HE JUST STARTED A NEW JOB AND NEEDS TO GO BACK TO WORK. MADE AWARE.
--- NOTE | 2022-04-18 17:00 | NUR ---
PT DC HOME. DISCHARGED PAPER DISCUSSED WITH THE PT. PT VERBALIZED UNDERSTANDING. REMOVED IV CATHETER IS INTACT. ID WRIST BAND REMOVED. ALL BELONGINGS TAKEN UPON DC. PT IS STABLE. PT WALKED OUT BY THE NURSE TO THE FRONT LOBBY.
== END 2022-04-18 17:00 | disposition home or self-care (01) | DRG 194 ==
LOC: MED 04:25 → MTU 09:38
PROVIDERS: ADMIT Internal Medicine; ATTEND Internal Medicine
DX: I11.0 Hypertensive heart disease with heart failure (principal); U07.1 COVID-19; E44.0 Moderate protein-calorie malnutrition; I24.8 Other forms of acute ischemic heart disease; I42.0 Dilated cardiomyopathy; I50.23 Acute on chronic systolic (congestive) heart failure; E87.6 Hypokalemia; E66.01 Morbid (severe) obesity due to excess calories; Z68.38 Body mass index [BMI] 38.0-38.9, adult; Z79.899 Other long term (current) drug therapy; Z91.14 Patient's other noncompliance with medication regimen; Z79.82 Long term (current) use of aspirin
CPT/HCPCS: 36415; 71045; 80053; 83735; 83880; 84443; 84484; 85025; 87081; 93005; 94664; 96365; 96366; 96375; 99285; J1644; J1940; J2270; J3475; J3535; J7512; Q0092

== ENCOUNTER 2022-04-28 23:54 | Emergency (ER) | payer OTHER ==
[~2022-04-28] VITALS: Ht 175.3 cm; Wt 127.0 kg
[2022-04-29 00:01] VITALS: BP 131/97
--- NOTE | 2022-04-29 00:12 | NUR ---
COVID-19 and flu swabs collected and sent to lab .
[2022-04-29] MEDS ORDERED: ALBUTEROL SULFATE/IPRATROPIU 3 ML SOL IH ONE (00:50)
--- NOTE | 2022-04-29 00:54 | NUR ---
Dr. Jameson examining patient.
--- NOTE | 2022-04-29 00:59 | NUR ---
RT at chair for breathing treatment.
[2022-04-29] MEDS ORDERED: ALBU0.0912 INH (01:29)
[2022-04-29] MEDS ORDERED: [UNRECOGNIZED DRUG - CODE] PO (01:32)
[2022-04-29 01:40] VITALS: BP 127/97
--- NOTE | 2022-04-29 01:40 | NUR ---
Patient discharged with v/s stable. Written and verbal after care instructions given and explained for Cough. Patient alert, oriented and verbalized understanding of instructions. Ambulatory with steady gait. All questions addressed prior to discharge. ID band removed. Patient advised to follow up with PMD. Rx of Albuterol and Robafen DM given. Patient educated on indication of medication including possible reaction and side effects. Opportunity to ask questions provided and answered.
== END 2022-04-29 01:40 | disposition home or self-care (01) ==
LOC: MED 23:54
DX: R05.9 Cough, unspecified (principal); Z20.822 Contact with and (suspected) exposure to COVID-19; I11.0 Hypertensive heart disease with heart failure; I50.9 Heart failure, unspecified; J44.9 Chronic obstructive pulmonary disease, unspecified; Z79.899 Other long term (current) drug therapy
CPT/HCPCS: 94640; 99285

== ENCOUNTER 2023-05-25 16:35 | Inpatient (IN) | payer OTHER ==
[~2023-05-25] VITALS: Ht 175.3 cm; Wt 123.4 kg
[~2023-05-25 16:35] MED LIST changes: +ALBU0.0912 INH; +ATOR10TA PO; +CEPH-588 PO; -LOSA100T1 PO; +LOSA100T2 PO; -SPIR25TA PO
[2023-05-25 16:40] VITALS: BP 161/105; PULSE 101; RESP 17; TEMP 98.8; O2SAT 97
[2023-05-25] MEDS ORDERED: MORPHINE SULFATE 4 MG/ML SYR IVP ONE ×2 (18:55→23:30)
[2023-05-25] MEDS ORDERED: ONDANSETRON 4 MG/2 ML VIAL IVP ONE (19:40)
[2023-05-25 19:47] LABS: HEMATOCRIT 41.1 % (36-52); HEMOGLOBIN 13.8 g/dL (12.0-18.0); MEAN CORPUSCULAR HEMOGLOBIN 30 pg (27-31); MEAN CORPUSCULAR HGB CONC 34 g/dL (33-37); MEAN CORPUSCULAR VOLUME 87.7 fL (80-94); PLATELET COUNT (AUTO) 373 K/uL (140-450); RED BLOOD CELL COUNT(AUTO) 4.69 MIL/uL (4.20-6.10); RED CELL DISTRIBUTION WIDTH 12.9 % (11.6-13.7); WHITE BLOOD COUNT (AUTO) 19.2 K/uL (4.8-10.8)
[2023-05-25 19:54] LABS: ALBUMIN 3.1 g/dL (3.4-5.0); ANION GAP 11.7 (8-16); CALCIUM 8.8 mg/dL (8.5-10.1); CARBON DIOXIDE 28.6 mmol/L (21-32); POTASSIUM 4.3 mmol/L (3.5-5.1); TOTAL BILIRUBIN 0.5 mg/dL (0.0-1.0); TOTAL PROTEIN, SERUM 8.8 g/dL (6.4-8.2)
[2023-05-25 19:58] LABS: BLOOD GAS BASE EXCESS 1.3 mmol/L (-2.0-2.0); BLOOD GAS HCO3 25.2 mmol/L (22-26); BLOOD GAS O2 SAT% 90.5 % (92.0-98.5); BLOOD GAS PO2 56.3 mmHg (75-100)
[2023-05-25 19:59] LABS: LACTIC ACID 0.8 mmol/L (0.4-2.0)
[2023-05-25] MEDS ORDERED: ENALAPRILAT 2.5 MG/2 ML VIAL IVP ONE (20:25)
[2023-05-25] MEDS ORDERED: NITROGLYCERIN 2% 1 GM PKT TP ONE (20:25)
[2023-05-25] MEDS ORDERED: ASPIRIN 325 MG TAB PO ONE (20:25)
[2023-05-25] MEDS ORDERED: ASPI-1794 PO (20:46)
[2023-05-25] MEDS ORDERED: ALLO100T21 PO (20:46)
[2023-05-25] MEDS ORDERED: FURO20TA8 PO (20:46)
[2023-05-25] MEDS ORDERED: CARV6.252 PO (20:46)
[2023-05-25] MEDS ORDERED: CHOL50005 PO (20:46)
[2023-05-25 21:02] LABS: APPEARANCE,URINE CLEAR (CLEAR); BILIRUBIN,URINE 1+ (NEGATIVE); BLOOD, URINE NEGATIVE (NEGATIVE); COLOR,URINE YELLOW (YELLOW); LEUKOCYTE ESTERASE ,URINE NEGATIVE (NEGATIVE); NITRITE, URINE NEGATIVE (NEGATIVE); PH,URINE 5.5 (5.0-9.0); PROTEIN,URINE TRACE (NEGATIVE); UGLUCOSE NEGATIVE (NEGATIVE); UROBILINOGEN,URINE 0.2 EU/dL (0.2 - 1)
[2023-05-25 21:56] LABS: EOSINOPHILS % (MANUAL) 1 % (0-4); LYMPHOCYTES % (MANUAL) 7 % (20-46); MONOCYTES % (MANUAL) 6 % (5-12); PLATELET ESTIMATE ADEQUATE
[2023-05-26] MEDS ORDERED: LORazepam 2 MG/ML VIAL IVP PRN (01:40)
[2023-05-26] MEDS ORDERED: ACETAMINOPHEN 325 MG TAB PO PRN (01:40)
[2023-05-26] MEDS ORDERED: ONDANSETRON 4 MG/2 ML VIAL IVP PRN (01:40)
[2023-05-26] MEDS: MORPHINE SULFATE 2 MG/ML SYR IVP PRN ×2 (09:15→14:56)
[2023-05-26 10:24] VITALS: PULSE 77; RESP 18; O2SAT 98
[2023-05-26 12:00] VITALS: BP 144/85; PULSE 77; PULSE 91; RESP 19; TEMP 97.9; O2SAT 99
[2023-05-26 16:00] VITALS: BP 136/89; PULSE 74; PULSE 96; RESP 20; TEMP 98.8; O2SAT 95
[2023-05-26 20:00] VITALS: BP 146/96; PULSE 83; RESP 18; TEMP 98; O2SAT 94
[2023-05-26 20:30] LABS: BASOPHILS # (AUTO) 0.1 K/uL (0.00-0.22); BASOPHILS % (AUTO) 0.4 % (0.0-2.0); EOSINOPHILS # (AUTO) 0.2 K/uL (0-0.4); EOSINOPHILS % (AUTO) 1.3 % (0.0-4.0); HEMATOCRIT 39.9 % (36-52); HEMOGLOBIN 13.4 g/dL (12.0-18.0); LYMPHOCYTES # (AUTO) 1.4 K/uL (2.0-11.5); LYMPHOCYTES % (AUTO) 10.7 % (20.5-51.1); MEAN CORPUSCULAR HEMOGLOBIN 30 pg (27-31); MEAN CORPUSCULAR HGB CONC 34 g/dL (33-37); MEAN CORPUSCULAR VOLUME 87.8 fL (80-94); MONOCYTES % (AUTO) 7.6 % (1.7-9.3); NEUTROPHILS # (AUTO) 10.8 K/uL (1.8-7.7); PLATELET COUNT (AUTO) 355 K/uL (140-450); RED BLOOD CELL COUNT(AUTO) 4.54 MIL/uL (4.20-6.10); RED CELL DISTRIBUTION WIDTH 12.9 % (11.6-13.7); WHITE BLOOD COUNT (AUTO) 13.4 K/uL (4.8-10.8)
[2023-05-26] MEDS ORDERED: VANCOMYCIN PER PHARMACY MC PRN ×2 (20:30→21:30)
[2023-05-26] MEDS ORDERED: VANCOMYCIN 1,000 MG VIAL IV ONE (21:00)
[2023-05-26] MEDS ORDERED: VANCOMYCIN 1GM/DEXT 5% PREMIX 200 ML IV ONE ×2 (21:15)
[2023-05-26] MEDS ORDERED: HYDROcodone/APAP 5/325 MG 1 TAB TAB PO PRN (22:10)
[2023-05-27] VITALS: BP 141/86; PULSE 101; PULSE 90; RESP 18; TEMP 98.9; O2SAT 95
[2023-05-27 04:00] VITALS: BP 148/97; PULSE 81; PULSE 85; RESP 18; TEMP 98; O2SAT 95
[2023-05-27] MEDS: HYDROcodone/APAP 10/325 MG 1 TAB TAB PO PRN ×3 (05:36→18:22)
[2023-05-27 07:02] LABS: ANION GAP 12.6 (8-16); CALCIUM 8.7 mg/dL (8.5-10.1); CARBON DIOXIDE 27.2 mmol/L (21-32); CREATININE 0.9 mg/dL (0.6-1.3); POTASSIUM 3.8 mmol/L (3.5-5.1)
[2023-05-27 07:28] LABS: BASOPHILS # (AUTO) 0.1 K/uL (0.00-0.22); BASOPHILS % (AUTO) 0.4 % (0.0-2.0); EOSINOPHILS # (AUTO) 0.1 K/uL (0-0.4); EOSINOPHILS % (AUTO) 1.1 % (0.0-4.0); HEMOGLOBIN 14.2 g/dL (12.0-18.0); LYMPHOCYTES # (AUTO) 1.6 K/uL (2.0-11.5); LYMPHOCYTES % (AUTO) 11.6 % (20.5-51.1); MEAN CORPUSCULAR HEMOGLOBIN 30 pg (27-31); MEAN CORPUSCULAR HGB CONC 34 g/dL (33-37); MONOCYTES # (AUTO) 1.1 K/uL (0.8-1.0); MONOCYTES % (AUTO) 7.8 % (1.7-9.3); NEUTROPHILS # (AUTO) 10.6 K/uL (1.8-7.7); NEUTROPHILS % (AUTO) 79.1 % (42.2-75.2); PLATELET COUNT (AUTO) 377 K/uL (140-450); RED BLOOD CELL COUNT(AUTO) 4.77 MIL/uL (4.20-6.10); RED CELL DISTRIBUTION WIDTH 12.9 % (11.6-13.7); WHITE BLOOD COUNT (AUTO) 13.4 K/uL (4.8-10.8)
[2023-05-27 08:00] VITALS: BP 160/88; PULSE 76; PULSE 78; RESP 20; TEMP 97.2; O2SAT 99
[2023-05-27] MEDS: FUROSEMIDE 20 MG TAB PO SCH (08:44)
[2023-05-27] MEDS: ECOTRIN 81 MG TABEC PO SCH (08:44)
[2023-05-27] MEDS: carvediloL 6.25 MG TAB PO SCH ×2 (08:44→20:31)
[2023-05-27] MEDS: LOSARTAN 50 MG TAB PO SCH (08:44)
[2023-05-27] MEDS: VANCOMYCIN 1,750 MG in DEXTROSE 5% 500 ML IV SCH ×2 (09:15→20:31)
[2023-05-27 12:00] VITALS: BP 153/99; PULSE 73; PULSE 89; RESP 18; TEMP 98.4; O2SAT 97
[2023-05-27 16:00] VITALS: BP 178/106; PULSE 73; PULSE 74; RESP 18; TEMP 97.8; O2SAT 98
[2023-05-27 20:00] VITALS: BP 143/98; PULSE 87; PULSE 92; RESP 18; TEMP 97.9; O2SAT 93
[2023-05-27] MEDS: ATORVASTATIN 20 MG TAB PO SCH (20:31)
[2023-05-28] VITALS: BP 154/98; PULSE 80; PULSE 83; RESP 18; TEMP 97.4; O2SAT 97
[2023-05-28] MEDS: HYDROcodone/APAP 10/325 MG 1 TAB TAB PO PRN ×3 (01:35→20:25)
[2023-05-28 04:00] VITALS: BP 133/92; PULSE 72; RESP 18; TEMP 97.8; O2SAT 95
[2023-05-28 08:00] VITALS: BP 146/87; PULSE 82; PULSE 83; RESP 18; TEMP 98.7; O2SAT 96
[2023-05-28] MEDS: LOSARTAN 50 MG TAB PO SCH (08:41)
[2023-05-28] MEDS: ECOTRIN 81 MG TABEC PO SCH (08:41)
[2023-05-28] MEDS: carvediloL 6.25 MG TAB PO SCH ×2 (08:41→20:25)
[2023-05-28] MEDS: FUROSEMIDE 20 MG TAB PO SCH (08:41)
[2023-05-28 11:14] LABS: BASOPHILS # (AUTO) 0.1 K/uL (0.00-0.22); BASOPHILS % (AUTO) 0.5 % (0.0-2.0); EOSINOPHILS # (AUTO) 0.2 K/uL (0-0.4); EOSINOPHILS % (AUTO) 1.8 % (0.0-4.0); HEMATOCRIT 42.5 % (36-52); HEMOGLOBIN 14.6 g/dL (12.0-18.0); LYMPHOCYTES # (AUTO) 1.2 K/uL (2.0-11.5); LYMPHOCYTES % (AUTO) 12.4 % (20.5-51.1); MEAN CORPUSCULAR HEMOGLOBIN 30 pg (27-31); MEAN CORPUSCULAR HGB CONC 34 g/dL (33-37); MONOCYTES # (AUTO) 0.7 K/uL (0.8-1.0); MONOCYTES % (AUTO) 7.1 % (1.7-9.3); NEUTROPHILS # (AUTO) 7.8 K/uL (1.8-7.7); NEUTROPHILS % (AUTO) 78.2 % (42.2-75.2); PLATELET COUNT (AUTO) 452 K/uL (140-450); RED BLOOD CELL COUNT(AUTO) 4.88 MIL/uL (4.20-6.10); RED CELL DISTRIBUTION WIDTH 13.1 % (11.6-13.7); WHITE BLOOD COUNT (AUTO) 9.9 K/uL (4.8-10.8)
[2023-05-28 11:23] LABS: ANION GAP 11.7 (8-16); CALCIUM 9.1 mg/dL (8.5-10.1); CARBON DIOXIDE 30.1 mmol/L (21-32); CREATININE 0.9 mg/dL (0.6-1.3); POTASSIUM 3.8 mmol/L (3.5-5.1)
[2023-05-28] MEDS: VANCOMYCIN 1,750 MG in DEXTROSE 5% 500 ML IV SCH (14:51)
[2023-05-28 16:00] VITALS: BP 140/93; PULSE 76; PULSE 77; RESP 18; TEMP 98.5; O2SAT 97
[2023-05-28 20:00] VITALS: BP 146/96; PULSE 95; PULSE 99; RESP 18; TEMP 98.2; O2SAT 95
[2023-05-28] MEDS: ATORVASTATIN 20 MG TAB PO SCH (20:25)
[2023-05-29] VITALS: BP 138/91; PULSE 72; PULSE 82; RESP 18; TEMP 97.5; O2SAT 94
[2023-05-29] MEDS ORDERED: VANCOMYCIN 1,000 MG VIAL ONE (00:35)
[2023-05-29] MEDS: VANCOMYCIN 1,750 MG in DEXTROSE 5% 500 ML IV SCH ×2 (00:51→12:34)
[2023-05-29 04:00] VITALS: BP 125/83; PULSE 75; PULSE 79; RESP 18; TEMP 97.4; O2SAT 94
[2023-05-29 06:13] LABS: AMPHETAMINE, URINE POSITIVE ng/ml (NEG <=1000); BARBITURATE, URINE NEGATIVE ng/ml (NEG <=200); BENZODIAZEPINE, URINE POSITIVE ng/mL (NEG <=200); CANNABINOID, URINE NEGATIVE ng/mL (NEG <=50); COCAINE, URINE NEGATIVE ng/mL (NEG <=300); OPIATE, URINE POSITIVE ng/mL (NEG <=2000); PHENCYCLIDINE SCREEN,URINE NEGATIVE ng/mL (NEG <=25)
[2023-05-29 06:46] LABS: ANION GAP 8.4 (8-16); CALCIUM 9.4 mg/dL (8.5-10.1); CARBON DIOXIDE 31.7 mmol/L (21-32); POTASSIUM 4.1 mmol/L (3.5-5.1)
[2023-05-29 08:00] VITALS: BP 160/93; PULSE 72; PULSE 84; RESP 18; RESP 20; TEMP 98.3; O2SAT 95
[2023-05-29] MEDS: ECOTRIN 81 MG TABEC PO SCH (08:39)
[2023-05-29] MEDS: LOSARTAN 50 MG TAB PO SCH (08:40)
[2023-05-29] MEDS: FUROSEMIDE 20 MG TAB PO SCH (08:41)
[2023-05-29] MEDS: carvediloL 6.25 MG TAB PO SCH ×2 (08:41→20:11)
[2023-05-29] MEDS: HYDROcodone/APAP 10/325 MG 1 TAB TAB PO PRN ×2 (08:51→18:41)
[2023-05-29 12:00] VITALS: BP 160/93; PULSE 113; PULSE 78; PULSE 80; RESP 20; TEMP 98; O2SAT 97
[2023-05-29 16:00] VITALS: BP 126/85; PULSE 78; PULSE 80; RESP 20; TEMP 98.6; O2SAT 96
[2023-05-29 20:00] VITALS: BP 127/74; PULSE 78; RESP 16; TEMP 98.1; O2SAT 96
[2023-05-29] MEDS: ATORVASTATIN 20 MG TAB PO SCH (20:11)
[2023-05-30] MEDS: AMPICILLIN 2,000 MG in NACL 0.9% 100 ML IV SCH ×4 (00:04→17:05)
[2023-05-30] MEDS: HYDROcodone/APAP 10/325 MG 1 TAB TAB PO PRN ×2 (01:47→08:50)
[2023-05-30 08:00] VITALS: BP 115/73; PULSE 67; PULSE 79; RESP 18; TEMP 97.6; O2SAT 95; O2SAT 96
[2023-05-30] MEDS: FUROSEMIDE 20 MG TAB PO SCH (08:45)
[2023-05-30] MEDS: carvediloL 6.25 MG TAB PO SCH (08:45)
[2023-05-30] MEDS: ECOTRIN 81 MG TABEC PO SCH (08:45)
[2023-05-30] MEDS: LOSARTAN 50 MG TAB PO SCH (08:45)
[2023-05-30 11:30] LABS: ANION GAP 10.2 (8-16); CALCIUM 8.9 mg/dL (8.5-10.1); CARBON DIOXIDE 29.1 mmol/L (21-32); CREATININE 0.9 mg/dL (0.6-1.3); POTASSIUM 4.3 mmol/L (3.5-5.1)
[2023-05-30 16:00] VITALS: BP 119/80; PULSE 74; RESP 18; TEMP 97.9; O2SAT 96
[2023-05-30] MEDS ORDERED: AMPI3VIA IJ (17:09)
== END 2023-05-30 18:50 | DRG 720 ==
LOC: MED 16:35 → MTU 05-26 01:42 → OBSVTOIN 05-26 01:42 → MTU 05-26 06:30
PROVIDERS: ADMIT Hospitalist; ATTEND Hospitalist
PROC: 02HV33Z Insertion of Infusion Device into Superior Vena Cava, Percutaneous Approach (ICD-10-PCS; principal; 2023-05-29)
PROC: B548ZZA Ultrasonography of Superior Vena Cava, Guidance (ICD-10-PCS; 2023-05-29)
DX: A41.9 Sepsis, unspecified organism (principal); I21.A1 Myocardial infarction type 2; I50.23 Acute on chronic systolic (congestive) heart failure; I42.7 Cardiomyopathy due to drug and external agent; Z68.41 Body mass index [BMI] 40.0-44.9, adult; I11.0 Hypertensive heart disease with heart failure; E66.9 Obesity, unspecified; R07.9 Chest pain, unspecified; F15.10 Other stimulant abuse, uncomplicated; R93.89 Abnormal findings on diagnostic imaging of other specified body structures
CPT/HCPCS: 36415; 36600; 71045; 71250; 71275; 80048; 80053; 80202; 80305; 81003; 82803; 83605; 83735; 83880; 84484; 84550; 85025; 85379; 85651; 86140; 87040; 87081; 87186; 93005; 96374; 96375; 96376; 99285; J0290; J2060; J2270; J2405; J3370; J3490; J7060; Q9967

== ENCOUNTER 2023-09-06 12:38 | Emergency (ER) | payer OTHER ==
[~2023-09-06 12:38] MED LIST changes: +ALLO100T21 PO; +AMPI3VIA IJ; +ASPI-1794 PO; -CARV12.5 PO; +CARV6.252 PO; -CEPH-588 PO; +CHOL50005 PO; -FURO-570 PO; +FURO20TA8 PO; +LOSA-272 PO; -LOSA100T2 PO
== END 2023-09-06 13:10 | disposition left against medical advice (07) ==
LOC: MED 12:38
DX: R53.1 Weakness (principal); R42 Dizziness and giddiness; Z53.21 Procedure and treatment not carried out due to patient leaving prior to being seen by health care provider